=== PATIENT | female | born 1995 | race Two or more races ===

== ENCOUNTER 2018-05-31 11:59 | Emergency (ER) | payer MEDICAID, OTHER ==
[~2018-05-31] VITALS: Ht 172.7 cm; Wt 107.8 kg
[2018-05-31] MEDS ORDERED: SODIUM CHLORIDE 0.9% 1,000 ML IV ONE (14:11)
[2018-05-31] MEDS ORDERED: DEXAMETHASONE 4 MG/ML, 1ML IVPush ONE (14:15)
[2018-05-31] MEDS ORDERED: DIPHENHYDRAMINE 50 MG/ML, 1ML ONE (14:24)
[2018-05-31] MEDS ORDERED: PROCHLORPERAZINE 5 MG/ML, 2ML ONE (14:24)
[2018-05-31] MEDS ORDERED: DEXAMETHASONE 4 MG/ML, 5ML ONE (14:24)
[2018-05-31] MEDS ORDERED: KETOROLAC 30 MG/1 ML ONE (14:24)
[2018-05-31] MEDS ORDERED: KETOROLAC 30 MG/1 ML IVPush ONE (14:30)
[2018-05-31] MEDS ORDERED: SODIUM CHLORIDE 0.9% 1,000ML IVBOLUS ONE (14:30)
[2018-05-31] MEDS ORDERED: DIPHENHYDRAMINE 50 MG/ML, 1ML IVPush ONE (14:30)
[2018-05-31] MEDS ORDERED: SODIUM CHLORIDE FLUSH 10ML SYR IVF ONE (14:30)
[2018-05-31] MEDS ORDERED: PROCHLORPERAZINE 5 MG/ML, 2ML IVPush ONE (14:30)
[2018-05-31 15:06] VITALS: BP 91/64
== END 2018-05-31 15:54 | disposition home or self-care (01) ==
LOC: ED 15:48
DX: G43.001 Migraine without aura, not intractable, with status migrainosus (principal); F12.10 Cannabis abuse, uncomplicated
CPT/HCPCS: 70450; 96374; 96375; 99284; J0780; J1100; J1200; J1885; J7030